=== PATIENT | female | born 1970 | race Caucasian/White ===

== ENCOUNTER 2022-04-29 11:27 | Emergency (ER) | payer BC, SELFPAY ==
[2022-04-29 11:36] VITALS: BP 136/76; PULSE 84; RESP 20; TEMP 36.7; O2SAT 100
--- NOTE | 2022-04-29 11:43 | ED.SKABFB ---
HPI - Skin/Abscess/Foreign Bdy General Chief complaint: Skin/Abscess/Foreign Body Stated complaint: blisters on feet Time Seen by Provider: 04/29/22 11:40 Source: patient and RN notes reviewed Mode of arrival: ambulatory Limitations: no limitations History of Present Illness HPI narrative: 51-year-old female presents with concern for blisters to the top of both feet. She reports the blisters have been there for approximately 1 week and are spreading and getting larger. She reports they are painful. She denies itching. She denies known cause. She reports she was wearing a new pair of shoes before the blister started. She denies general malaise, body aches, fever. MD complaint: other (Blisters) Related Data Home Medications Medication Instructions Recorded Confirmed atorvastatin 20 mg tablet 20 mg PO HS 04/29/22 04/29/22 cyanocobalamin (vitamin B-12) 1,000 mcg PO DAILY 04/29/22 04/29/22 1,000 mcg capsule folic acid 1 mg tablet 1 mg PO DAILY 04/29/22 04/29/22 glimepiride 2 mg tablet 2 mg PO DAILY 04/29/22 04/29/22 insulin glargine 100 unit/mL (3 30 unit subcut BID 04/29/22 04/29/22 mL) subcutaneous pen (Semglee Pen U-100 Insulin) levonorgestrel 0.15 mg-ethinyl 1 tablet PO DAILY 04/29/22 04/29/22 estradiol 0.03 mg tablet levothyroxine 100 mcg tablet 100 mcg PO DAILY 04/29/22 04/29/22 (Synthroid) liothyronine 5 mcg tablet 5 mcg PO DAILY 04/29/22 04/29/22 lisinopril 20 1 tablet PO DAILY 04/29/22 04/29/22 mg-hydrochlorothiazide 25 mg tablet metformin 500 mg tablet 500 mg PO BID 04/29/22 04/29/22 semaglutide 0.25 mg or 0.5 mg (2 0.5 mg subcut WEEKLY 04/29/22 04/29/22 mg/1.5 mL) subcutaneous pen injector (Ozempic) Allergies Allergy/AdvReac Type Severity Reaction Status Date / Time No Known Allergies Allergy Verified 04/29/22 11:45 Review of Systems Review of Systems: CONSTITUTIONAL: Denies malaise, chills, sweats, or fever. CARDIOVASCULAR: Denies chest pain, palpitations, or edema. RESPIRATORY: Denies cough or dyspnea. GASTROINTESTINAL: Denies abdominal pain, nausea, vomiting SKIN: Reports painful blisters on top of both feet that are spreading MUSCULOSKELETAL: Denies joint pain or myalgia. NEUROLOGIC: Denies headache. All systems reviewed & are unremarkable except as noted in HPI and below PMFSH Comments At time of signature, agree with nursing past medical, surgical, social and family history. There is no relevant family history pertinent to the presenting complaint Exam Narrative: GENERAL: Well-appearing, well-nourished, and in no acute distress. HEAD: Normocephalic, atraumatic. EYES: PERRLA, conjunctivae clear ENT: Mucous membranes moist NECK: Supple. No lymphadenopathy CHEST: Clear to auscultation. No respiratory distress. HEART: Regular rate and rhythm. SKIN: Warm, dry. Fluid-filled bulla noted to bilateral dorsal feet, 3 noted to the right foot each approximately 3 cm in diameter, 3 noted to the left foot approximately 2 cm in diameter each NEURO: Alert and oriented x3. PSYCH: Normal mood and affect Course Course Emergency Course: Discussed with patient benefits versus risks of draining the bulla. Given that the bulla are very painful, makes it difficult for her to wear shoes and continue to get larger through mutual decision making it was decided to drain the bulla. Patient is aware of diagnosis, understands and agrees to treatment plan. Anticipatory guidance given. Patient agrees to follow-up as directed and is aware of reasons to seek care at the emergency department. Portions of this record may have been created with voice recognition software Level of Care: Express Care Visit Vital Signs Vital signs: Vital Signs Temperature 98.1 F 04/29/22 11:36 Pulse Rate 84 04/29/22 11:36 Respiratory Rate 20 04/29/22 11:36 Blood Pressure 136/76 04/29/22 11:36 Pulse Oximetry 100 04/29/22 11:36 Oxygen Delivery Room Air 04/29/22 11:36 Temperature 98.1 F
== END 2022-04-29 12:29 | disposition home or self-care (01) ==
PROVIDERS: Emergency Provider Nurse Practitioner; PCP Nurse Practitioner Family
DX: L08.9 Local infection of the skin and subcutaneous tissue, unspecified (principal); B96.89 Other specified bacterial agents as the cause of diseases classified elsewhere; E78.00 Pure hypercholesterolemia, unspecified; I10 Essential (primary) hypertension; E11.9 Type 2 diabetes mellitus without complications; E03.9 Hypothyroidism, unspecified
CPT/HCPCS: 10160; 87070; 87205; 99213; G0463